=== PATIENT | female | born 1985 | race Caucasian/White ===

== ENCOUNTER 2018-11-24 00:07 | Emergency (ER) | payer SELFPAY ==
[~2018-11-24] VITALS: Ht 162.6 cm; Wt 73.4 kg
[2018-11-24 00:09] VITALS: BP 132/61; PULSE 62; RESP 19; Ht 162.6 cm; Wt 73.4 kg
== END 2018-11-24 00:20 | disposition left against medical advice (07) ==
LOC: FTE 00:07
DX: Z53.21 Procedure and treatment not carried out due to patient leaving prior to being seen by health care provider (principal)